=== PATIENT | male | born 1970 | race Caucasian/White ===

== ENCOUNTER 2023-03-09 15:58 | Emergency (ER) | payer BC ==
[~2023-03-09] VITALS: Ht 188 cm; Wt 161.0 kg
[2023-03-09] MEDS ORDERED: NS 1,000 ML IV ONE (16:15)
[2023-03-09 16:36] LABS: BASO % 0.4 % (0.0-2.0); EOS # 0.1 K/mm3 (0.0-0.7); EOS % 0.8 % (0.0-4.0); GRAN # 8.6 K/mm3 (1.4-6.5); GRAN % 86.4 % (42.2-75.2); HEMATOCRIT 44.2 % (42.0-52.0); LYMPH # 0.9 K/mm3 (1.2-3.4); LYMPH % 8.6 % (20.0-51.0); MEAN CELL VOLUME 93 fl (80.0-100.0); MEAN CORPUSCULAR HEMOGLOBIN 32 pg (27-31); MEAN CORPUSCULAR HGB CONC 34 g/dl (33.0-37.0); MEAN PLATELET VOLUME 9.1 fl (7.4-10.4); MONO # 0.3 K/mm3 (0.1-0.6); PLATELET COUNT 161 K/mm3 (130-400); RED BLOOD COUNT 4.75 M/mm3 (4.20-5.60)
[2023-03-09] MEDS ORDERED: Iohexol 300 - 100 ML VIAL IV ONE (16:43)
[2023-03-09 16:44] LABS: PARTIAL THROMBOPLASTIN TIME 28.6 SECONDS (26.0-37.0)
[2023-03-09] MEDS ORDERED: NS 100 ML IV SCH (16:44)
[2023-03-09] MEDS ORDERED: Heparin/D5W 250 ML IV SCH (16:45)
[2023-03-09] MEDS ORDERED: Heparin 5,000 UNITS/ML 1 ML VIAL IV PRN (16:45)
[2023-03-09] MEDS ORDERED: Heparin 5,000 UNITS/ML 1 ML VIAL IV ONE (16:45)
[2023-03-09 16:53] LABS: ALBUMIN 3.5 gm/dL (3.5-5.0); BILIRUBIN,TOTAL 1.4 mg/dL (0.2-1.2); CALCIUM 9.5 mg/dL (8.4-10.2); CREATININE, serum 1.69 mg/dL (0.72-1.25); POTASSIUM 4.8 mmol/L (3.5-4.5); TOTAL PROTEIN 8.2 gm/dL (6.2-8.1)
[2023-03-09 17:02] LABS: TROPONIN-I 0.105 ng/mL (0.00-0.033)
[2023-03-09] MEDS ORDERED: HYDROmorphone 0.5 MG/0.5 ML SYRINGE IV ONE (18:30)
[2023-03-09 18:57] VITALS: BP 128/87; PULSE 118
[2023-05-04] MEDS ORDERED: ELIQUIS 5MG PO (14:25)
[2023-05-04] MEDS ORDERED: COREG 25MG25 MG/TAB PO (14:26)
[2023-05-04] MEDS ORDERED: LASIX 40MG TABL40 MG PO (14:27)
[2023-05-04] MEDS ORDERED: CENTRUM MEN'S (14:28)
[2023-05-04] MEDS ORDERED: FLOMAX 0.40.4 MG/CAP PO (14:28)
[2023-05-04] MEDS ORDERED: NORCO 325 MG-101 TAB PO (14:30)
[2023-05-04] MEDS ORDERED: NORCO 325 MG-51 TAB PO (16:50)
[2023-05-04] MEDS ORDERED: PYRIDIUM 100MG100 MG PO (16:50)
[2023-05-05] MEDS ORDERED: CLEOCIN HCL300 MG PO (11:05)
== END 2023-03-09 18:58 | disposition short-term general hospital (02) ==
LOC: COL.ER 15:58
PROVIDERS: Emergency Medicine
DX: I26.99 Other pulmonary embolism without acute cor pulmonale (principal); R79.89 Other specified abnormal findings of blood chemistry; R77.8 Other specified abnormalities of plasma proteins; R06.82 Tachypnea, not elsewhere classified; Z28.310 Unvaccinated for COVID-19
CPT/HCPCS: A4314; J1170; J1644; J7030; Q9967